=== PATIENT | female | born 1990 | race Two or more races ===

== ENCOUNTER 2022-03-15 21:32 | Emergency (ER) | payer OTHER ==
[~2022-03-15] VITALS: Ht 154.9 cm; Wt 72.6 kg
[2022-03-15] MEDS ORDERED: PANADOL (22:10)
[2022-03-16] MEDS ORDERED: KETO10TA2 PO (01:25)
== END 2022-03-16 02:01 ==
LOC: ER 21:32
DX: S93.402A Sprain of unspecified ligament of left ankle, initial encounter (principal); W19.XXXA Unspecified fall, initial encounter; Y93.9 Activity, unspecified; Y92.019 Unspecified place in single-family (private) house as the place of occurrence of the external cause; Y99.9 Unspecified external cause status

== ENCOUNTER 2022-04-21 12:31 | Outpatient (CLI) | payer OTHER ==
[~2022-04-21 12:31] MED LIST: KETO10TA2 PO; PANADOL
== END 2022-04-21 12:39 | disposition home or self-care (01) ==
LOC: RAD 12:31
PROVIDERS: ATTEND Orthopaedic Surgery
DX: M24.272 Disorder of ligament, left ankle (principal); S93.402A Sprain of unspecified ligament of left ankle, initial encounter

== ENCOUNTER 2022-12-04 17:57 | Emergency (ER) | payer OTHER ==
[~2022-12-04] VITALS: Ht 154.9 cm; Wt 80.7 kg
[2022-12-05] MEDS ORDERED: ACETAMINOPHEN650 M2 PO (04:01)
== END 2022-12-05 04:18 | disposition home or self-care (01) ==
LOC: ER 17:57
DX: O26.93 Pregnancy related conditions, unspecified, third trimester (principal); Z3A.28 28 weeks gestation of pregnancy; W10.9XXA Fall (on) (from) unspecified stairs and steps, initial encounter; Y93.9 Activity, unspecified; Y92.019 Unspecified place in single-family (private) house as the place of occurrence of the external cause

== ENCOUNTER 2023-02-09 12:55 | Inpatient (IN) | payer OTHER ==
[~2023-02-09] VITALS: Ht 154.9 cm; Wt 80.7 kg
[~2023-02-09 12:55] MED LIST changes: +ACETAMINOPHEN650 M2 PO
[2023-02-09] MEDS ORDERED: PRENATAL TABLE1 EAC1 PO (13:21)
== END 2023-02-11 13:41 | disposition home or self-care (01) | DRG 807 ==
LOC: LDR 12:55 → OB/GYN 17:15
PROVIDERS: ADMIT Obstetrics & Gynecology Obstetrics; ATTEND Obstetrics & Gynecology Obstetrics
PROC: 10E0XZZ Delivery of Products of Conception, External Approach (ICD-10-PCS; principal; 2023-02-09)
PROC: 4A1HXCZ Monitoring of Products of Conception, Cardiac Rate, External Approach (ICD-10-PCS; 2023-02-09)
DX: O80 Encounter for full-term uncomplicated delivery (principal); Z37.0 Single live birth; Z3A.37 37 weeks gestation of pregnancy; Z20.822 Contact with and (suspected) exposure to COVID-19